=== PATIENT | female | born 1965 | race African-American/Black ===

== ENCOUNTER 2022-06-25 09:13 | Emergency (ER) | payer BC ==
[~2022-06-25] VITALS: Ht 162.6 cm; Wt 68.0 kg
[2022-06-25 09:18] VITALS: BP_SYST 142
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
--- NOTE | 2022-06-25 09:27 | NUR ---
PLACED IN BED 3, INFORMED PRIMARY PATY ANDRADE
--- NOTE | 2022-06-25 09:46 | NUR ---
ER at bedside examining patient.
[2022-06-25] MEDS ORDERED: KETOROLAC TROMETHAMINE 30 MG VIAL IVP ONE (10:00)
[2022-06-25] MEDS ORDERED: NS 250 ML IV ONE (10:00)
[2022-06-25 10:32] LABS: BASOPHILS # (AUTO) 0.1 K/uL (0.0-0.2); BASOPHILS % (AUTO) 0.8 % (0.0-2.0); EOSINOPHILS % (AUTO) 0.1 % (0.0-4.0); HEMOGLOBIN 12.3 g/dL (12.0-16.0); LYMPHOCYTES # (AUTO) 0.5 K/uL (1.0-5.5); LYMPHOCYTES % (AUTO) 6.4 % (20.5-51.5); MEAN CORPUSCULAR HEMOGLOBIN 26 pg (27-31); MEAN CORPUSCULAR HGB CONC 34 % (32-36); MEAN CORPUSCULAR VOLUME 75 fL (79.0-98.0); MONOCYTES # (AUTO) 0.9 K/uL (0.0-1.0); MONOCYTES % (AUTO) 11.7 % (1.7-9.3); NEUTROPHILS # (AUTO) 6.2 K/uL (1.8-7.7); PLATELET COUNT (AUTO) 193 K/uL (130-430); RED BLOOD CELL COUNT(AUTO) 4.79 MIL/uL (4.2-6.2); RED CELL DISTRIBUTION WIDTH 20.6 % (9.0-15.0); WHITE BLOOD COUNT (AUTO) 7.7 K/uL (4.8-10.8)
--- NOTE | 2022-06-25 10:54 | NUR ---
EKG performed at by PATY Joe. Physician given copy of EKG for review.
[2022-06-25 11:02] LABS: CALCIUM 9.2 mg/dL (8.4-11.0); CREATININE 0.68 mg/dL (0.55-1.30); POTASSIUM 3.8 mmol/L (3.5-5.1)
[2022-06-25 11:08] LABS: TOTAL BILIRUBIN 1.2 mg/dL (0.0-1.0)
--- NOTE | 2022-06-25 11:15 | NUR ---
Pt to ED due to generalized pain. Pt denies cough or fever. Per pt she has not had C19 vaccine, swab sent. Plan of care discussed w/ pt and family. Will continue to monitor.
[2022-06-25 11:45] LABS: BILIRUBIN,URINE NEGATIVE (NEGATIVE); BLOOD, URINE NEGATIVE (NEGATIVE); CLARITY/URINE CLEAR (CLEAR); COLOR,URINE YELLOW (YELLOW); GLUCOSE,URINE NEGATIVE (NEGATIVE); KETONES,URINE 1+ (NEGATIVE); LEUKOCYTE ESTERASE ,URINE TRACE (NEGATIVE); NITRITE, URINE NEGATIVE (NEGATIVE); PROTEIN URINE NEGATIVE (NEGATIVE); UROBILINOGEN,URINE 0.2 (0.2-1.0)
[2022-06-25 11:55] LABS: BACTERIA,URINE RARE /HPF (None Seen); MUCUS,URINE 1+ /LPF (None Seen); RBC,URINE 0-3 /HPF (0-3); WBC,URINE 0-3 /HPF (0-3)
[2022-06-25 12:28] VITALS: BP_SYST 161
--- NOTE | 2022-06-25 12:31 | NUR ---
Patient given written and verbal discharge instructions and verbalizes understanding. SHIVAM Corona MD discussed with patient the results and treatment provided. Patient in stable condition. ID arm band removed. IV catheter removed intact and dressing applied, no active bleeding. Patient educated on pain management and to follow up with PMD. Pain Scale . Opportunity for questions provided and answered. Medication side effect fact sheet provided.
--- NOTE | 2022-07-09 05:55 | NUR ---
ADDENDUM: Nacl 250ml Start time 10:05hr End time 11:05hr
== END 2022-06-25 12:31 | disposition home or self-care (01) ==
LOC: SED 09:13
DX: U07.1 COVID-19 (principal); R53.1 Weakness; R11.0 Nausea; R42 Dizziness and giddiness; R06.02 Shortness of breath; Z79.899 Other long term (current) drug therapy
CPT/HCPCS: 99285; 96374; 71045; 96361; 87426; 80053; 81000; 82550; 85025; 84484; 36415; 93005; J1885; J7030

== ENCOUNTER 2024-05-03 08:54 | Outpatient (CLI) | payer BC ==
[2024-05-03 09:38] LABS: BILIRUBIN,URINE NEGATIVE (NEGATIVE); BLOOD, URINE NEGATIVE (NEGATIVE); CLARITY/URINE CLEAR (CLEAR); COLOR,URINE YELLOW (YELLOW); GLUCOSE,URINE NEGATIVE (NEGATIVE); KETONES,URINE NEGATIVE (NEGATIVE); LEUKOCYTE ESTERASE ,URINE 3+ (NEGATIVE); NITRITE, URINE NEGATIVE (NEGATIVE); PH,URINE 7.5 (5.0-8.0); PROTEIN URINE NEGATIVE (NEGATIVE)
[2024-05-03 09:54] LABS: BACTERIA,URINE FEW /HPF (None Seen); CALCIUM OXALATE CRYSTALS,UR None Seen /HPF (None Seen); CALCIUM PHOSPHATE CRYSTALS,UR None Seen /HPF (None Seen); COARSE GRANULAR CASTS,URINE None Seen /LPF (None Seen); FINE GRANULAR CASTS,URINE None Seen /LPF (None Seen); HYALINE CASTS, URINE None Seen /LPF (None Seen); MUCUS,URINE None Seen /LPF (None Seen); OTHER CASTS, URINE None Seen /LPF (None Seen); OTHER CRYSTALS,URINE None Seen /HPF (None Seen); RBC,URINE 0-3 /HPF (0-3); TRICHOMONAS,URINE None Seen /HPF (None Seen); TRIPLE PHOSPHATE CRYSTAL,UR None Seen /HPF (None Seen); URIC ACID CRYSTALS,URINE None Seen /HPF (None Seen); URINE AMORPHOUS PHOSPHATES None Seen /HPF (None Seen); URINE AMORPHOUS URATE None Seen /HPF (None Seen); WAXY CASTS,URINE None Seen /LPF (None Seen); YEAST,URINE None Seen /HPF (None Seen)
[2024-05-03 10:40] LABS: ALBUMIN 3.7 g/dL (3.4-4.8); CREATININE 0.76 mg/dL (0.55-1.30); POTASSIUM 3.8 mmol/L (3.5-5.1); THYROID STIMULATING HORMONE 2.44 uIu/mL (0.34-4.82); TOTAL BILIRUBIN 1.5 mg/dL (0.0-1.0); TOTAL PROTEIN, SERUM 7.7 g/dL (6.4-8.3)
[2024-05-03 11:08] LABS: HEMOGLOBIN A1C 4.7 % (<5.7)
[2024-05-03 14:10] LABS: HEMATOCRIT 34.6 % (36-48); HEMOGLOBIN 12.4 g/dL (12.0-16.0); MEAN CORPUSCULAR HEMOGLOBIN 26 pg (27-31); MEAN CORPUSCULAR HGB CONC 36 % (32-36); MEAN CORPUSCULAR VOLUME 74 fL (79.0-98.0); PLATELET COUNT (AUTO) 264 K/uL (130-430); WHITE BLOOD COUNT (AUTO) 5.6 K/uL (4.8-10.8)
[2024-05-03 14:24] LABS: TARGET CELLS MANY
[2024-05-03 14:26] LABS: ANISOCYTOSIS 2+
[2024-05-03 20:09] LABS: BAND % (MANUAL) 0 % (0-6); BASOPHILS % (MANUAL) 0 % (0-2); EOSINOPHILS % (MANUAL) 2 % (0-7); LYMPHOCYTES % (MANUAL) 45 % (20-46); MONOCYTES % (MANUAL) 6 % (0-11)
[2024-05-03 20:10] LABS: PLATELET ESTIMATE ADEQUATE (ADEQUATE)
== END 2024-05-03 18:17 | disposition home or self-care (01) ==
LOC: SLB 08:54
PROVIDERS: ATTEND Internal Medicine
DX: R73.9 Hyperglycemia, unspecified (principal); E03.9 Hypothyroidism, unspecified; E78.5 Hyperlipidemia, unspecified; E55.9 Vitamin D deficiency, unspecified; E56.9 Vitamin deficiency, unspecified
CPT/HCPCS: 36415; 80053; 80061; 81000; 81001; 81015; 82306; 83037; 84443; 85007; 85027